=== PATIENT | male | born 1940 | race Caucasian/White ===

== ENCOUNTER 2016-12-01 10:28 | Day surgery (SDC) | payer OTHER ==
[~2016-12-01] VITALS: Ht 175.3 cm; Wt 98.0 kg
[2016-12-01] MEDS ORDERED: diphenhydrAMINE HCL 50 MG CAP PO SCH (11:00)
[2016-12-01] MEDS ORDERED: DEXTROSE IV SCH ×2 (11:00)
[2016-12-01] MEDS ORDERED: DO NOT GIVE AM GLUCOPHAGE, GLUCOPHAGE XR, GLIPIZIDE, GLYBURIDE OR AVANDAMET XX PRN (11:00)
[2016-12-01] MEDS ORDERED: SODIUM BICARBONATE IV SCH ×2 (11:00)
[2016-12-01] MEDS ORDERED: METO25TA6 PO (11:06)
[2016-12-01] MEDS ORDERED: ALBU0.63 NEB (11:06)
[2016-12-01] MEDS ORDERED: ASPI81CH CHEW (11:06)
[2016-12-01] MEDS ORDERED: ATOR40TA16 PO (11:06)
[2016-12-01 11:11] LABS: AUTOMATED NEUTROPHIL # 7.8 TH/MM3 (1.8-7.7); BASOPHIL % 0.3 % (0.0-2.0); EOSINOPHIL # 0.2 TH/MM3 (0-0.4); HEMATOCRIT 44.9 % (39.0-51.0); HEMO FLAGS DIFF FINAL; LYMPH % 17.3 % (9.0-44.0); LYMPHOCYTE # 1.9 TH/MM3 (1.0-4.8); MEAN CELL VOLUME 88.8 FL (80.0-100.0); MEAN CORPUSCULAR HEMOGLOBIN 30.2 PG (27.0-34.0); MONO % 8.7 % (0.0-8.0); NEUT % 71.7 % (16.0-70.0); PLATELET COUNT 150 TH/MM3 (150-450); RED BLOOD COUNT 5.06 MIL/MM3 (4.50-5.90); RED CELL DISTRIBUTION WIDTH 13.7 % (11.6-17.2); WHITE BLOOD COUNT 10.8 TH/MM3 (4.0-11.0)
[2016-12-01] MEDS ORDERED: SODIUM CHLOR 0.9% 1000 ML INJ 1,000 ML IV SCH (11:15)
[2016-12-01 11:24] LABS: PROTHROMBIN TIME - PATIENT 10.9 SEC (9.8-11.6)
[2016-12-01 11:43] LABS: BICARBONATE 30.2 MEQ/L (21.0-32.0)
[2016-12-01] MEDS ORDERED: diphenhydrAMINE HCL 50 MG/ML VIAL ONE (11:49)
[2016-12-01] MEDS ORDERED: MIDAZOLAM HCL 2 MG/2 ML VIAL ONE (11:50)
[2016-12-01] MEDS ORDERED: IOHEXOL 350 MG/ML 50 ML BTL (for Cath Lab) OTHER ONE (12:30)
--- NOTE | 2016-12-01 12:55 | HHI.PR ---
Immediate Post Op Note Procedure Date: Dec 01, 2016 Pre Op Diagnosis: (1) [place] filter in place Post Op Diagnosis: (1) [place] filter in place Surgeon: Suleiman Downs Shipping And Receiving Assistant(s): None Procedure: IVCavagram, U/S guided access to R IJ Attempted IVC retrieval Findings: non-retrievable IVCF (no hook) - unable to advance sheath over filter Complications: None Specimen(s) removed: None Estimated blood loss: 20 mL Anesthesia: Conscious Sedation Drains: None Patient to: Other (DOCU) Patient Condition: Good Date/Time of Procedure: SEE SURGICAL CARE RECORD Suleiman Downs MD Dec 01, 2016 12:55
--- NOTE | 2016-12-01 13:56 | MP ---
cc: SULEIMAN DOWNS MD DATE OF SURGERY 12/01/2016 PREOPERATIVE DIAGNOSIS IVC filter. POSTOPERATIVE DIAGNOSIS IVC filter. PROCEDURE 1. Ultrasound guided access to the right internal jugular vein. 2. Inferior venacavogram. ATTENDING SURGEON Suleiman Downs MD PRODUCTION WELDER SURGEON None. ANESTHESIA Local with sedation. INDICATIONS Mr. Piedra is a 76-year-old gentleman with an IVC filter that was placed several years ago. He was taken to the operating room for attempted retrieval. Intraoperatively it was found to be a non-retrievable filter and despite multiple attempts we were not able to grasp the top of the filter sufficiently to bring it into the sheath and so it remained a permanent filter. DESCRIPTION OF PROCEDURE Informed consent was obtained from the patient. He was taken to the operating room and placed supine on the operating room table and appropriate time-out was taken to identify the patient, the operative site and the planned procedure. The administration of antibiotics was not necessary as this is a clean procedure without planned implantation of any foreign object. Everyone in the room agreed with the time-out and we proceeded. His right neck was prepped and draped and under ultrasound guidance the right internal jugular vein was accessed with a 21-gauge micropuncture needle. This was exchanged using Seldinger technique through the micropuncture sheath through which a 0.025 STORQ wire was introduced. The micropuncture sheath was exchanged for the 10-[place] dilator over the wire and then a [place] filter deployment and retrieval sheath was introduced and advanced down to the inferior vena cava. An inferior venacavogram was obtained and this showed the filter to be upright without any thrombus in it. The [place] snare and then a clover[place] snare were used to attempt to grab the top of the filter. These were unsuccessful and the wire, catheter and sheaths were removed and pressure used to obtain hemostasis. There were no complications. I was present and scrubbed for the entire procedure. Suleiman Downs MD RJF/SSB /1:04 PM /1:36 PM [facility] Alberto
== END 2016-12-01 14:59 | disposition home or self-care (01) ==
LOC: HDOC 10:28 → HDIC 10:29 → HDOC 14:59
PROVIDERS: ATTEND Surgery
DX: Z45.2 Encounter for adjustment and management of vascular access device (principal); I25.10 Atherosclerotic heart disease of native coronary artery without angina pectoris; I73.9 Peripheral vascular disease, unspecified; I10 Essential (primary) hypertension; J44.9 Chronic obstructive pulmonary disease, unspecified; E78.5 Hyperlipidemia, unspecified
CPT/HCPCS: 75820; 80048; 85025; 85610; 85730; J1200; J2250; J3010; J7030; J7070; Q9967